=== PATIENT | male | born 2000 | race Caucasian/White ===

== ENCOUNTER 2019-04-17 22:04 | Emergency (ER) | payer OTHER ==
[~2019-04-17] VITALS: Ht 182.9 cm; Wt 96.4 kg
[2019-04-17 22:09] VITALS: BP 133/75; TEMP 99.9
[2019-04-17] MEDS ORDERED: VYVANSE70 MG PO (22:10)
[2019-04-17 22:30] LABS: STREP SCREEN NEGATIVE
[2019-04-17] MEDS ORDERED: DECADRON 4MG TAB4 MG PO (22:47)
[2019-04-17] MEDS ORDERED: CLEOCIN HCL300 MG PO (22:47)
[2019-04-17 23:03] VITALS: PULSE 100
== END 2019-04-17 23:05 | disposition home or self-care (01) ==
LOC: COL.ER 22:04
PROVIDERS: Emergency Medicine
DX: J36 Peritonsillar abscess (principal)
CPT/HCPCS: J8540